=== PATIENT | male | born 1975 | race Caucasian/White ===

== ENCOUNTER → 2016-06-20 | Outpatient (CLI) | payer OTHER ==
--- NOTE | 2016-06-20 09:51 | KCIC ---
PROCEDURE Abdomen sonogram limited. HISTORY Palpable lump within the ventral abdominal wall during leg lifts. TECHNIQUE Sonographic imaging of the ventral abdominal wall at the site of reported palpable concern was performed. COMPARISON None. FINDINGS No ventral abdominal wall hernia is seen. No solid lesion or fluid collection is seen. IMPRESSION No sonographic abnormality at the site of palpable concern within the ventral abdominal wall. Electronically signed by: Amie Frias (Jun 20, 2016 09:49:40)
== END | disposition home or self-care (01) ==
LOC: KCIC US 08:51
PROVIDERS: ATTEND Physician Assistant Medical
DX: K43.9 Ventral hernia without obstruction or gangrene (principal)
CPT/HCPCS: 76705

== ENCOUNTER 2017-11-18 22:52 | Emergency (ER) | payer OTHER | END 2017-11-18 23:24 | disposition left against medical advice (07) | LOC: ER 22:52 | DX: R06.02 Shortness of breath (principal); R07.89 Other chest pain; Z53.21 Procedure and treatment not carried out due to patient leaving prior to being seen by health care provider ==

== ENCOUNTER → 2018-05-18 | Emergency (ER) | payer OTHER ==
[~2018-05-18] VITALS: Ht 182.9 cm; Wt 108.9 kg
[2018-05-18 21:45] VITALS: BP 174/80
--- NOTE | 2018-05-18 22:20 | PHYS DOC ---
Adult General Chief Complaint Chief Complaint: ANXIETY/PANIC ATTACK HPI HPI Patient is a 43 year old male who is presenting with anxiety. He has a history of anxiety in the past he says that he was lying in bed he felt like his heart was racing he just Lima Weak All over He Just Lima Shaky He Had Had a Xanax He Had Also Had a Leburn and Some Beer Earlier in the Day He Really Didn't Have Any Chest Pain Just Lima like His Heart Was "Fluttering". He Now Comes to the Emergency Room He Feels Much Better. 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 Allergies Allergies Allergies Coded Allergies Type Severity Reaction Last Updated Verified No Known Drug Allergies 05/18/18 No Physical Exam Physical Exam Constitutional: Well developed, well nourished, no acute distress, non-toxic appearance. [] HENT: Normocephalic, atraumatic, bilateral external ears normal, oropharynx moist, no oral exudates, nose normal. [] Eyes: PERRLA, EOMI, conjunctiva normal, no discharge. [] Neck: Normal range of motion, no tenderness, supple, no stridor. [] Cardiovascular:Heart rate regular rhythm, no murmur [] Lungs & Thorax: Bilateral breath sounds clear to auscultation [] Abdomen: Bowel sounds normal, soft, no tenderness, no masses, no pulsatile masses. [] Skin: Warm, dry, no erythema, no rash. [] Back: No tenderness, no CVA tenderness. [] Extremities: No tenderness, no cyanosis, no clubbing, ROM intact, no edema. [] Neurologic: Alert and oriented X 3, normal motor function, normal sensory function, no focal deficits noted. [] Psychologic: Affect normal, judgement normal, mood normal. CALM AND COOPERATIVE EKG EKG EKG shows normal sinus rhythm rate of 83 no acute ischemic changes noted no STEMI interpreted by me the time of encounter[] Radiology/Procedures Radiology/Procedures [] Course & Med Decision Making Course & Med Decision Making Pertinent Labs and Imaging studies reviewed. (See chart for details) Blood pressure was in the 170s heart rate normal respiratory rate 12 sat normal on room air see nurse's note for complete vitals 43-year-old male with anxiety most likely differential would include atypical coronary syndrome. 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 He knows that we'll do 2 troponins over at least a 2 hour period if not longer to rule this out entirely he knows there is a small risk of a missed [place]. He wants to sign out AGAINST MEDICAL ADVICE despite my above recommendations. He is of sound mind Dragon Disclaimer Dragon Disclaimer This electronic medical record was generated, in whole or in part, using a voice recognition dictation system. Departure Departure Impression: Primary Impression: Palpitations Disposition: 07 AGAINST MEDICAL ADVICE Condition: STABLE Patient Instructions: Palpitations, [id number]-[id number] CABRERA MARQUEZ MD May 18, 2018 22:20
--- NOTE | 2018-05-20 13:52 | EKG ---
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
== END ==
LOC: ER 21:35
DX: R00.2 Palpitations (principal); F41.9 Anxiety disorder, unspecified
CPT/HCPCS: 82962; 93005; 99284

== ENCOUNTER → 2019-10-07 | Outpatient (CLI) | payer OTHER ==
[2018-05-18 21:45] VITALS: BP 174/80
--- NOTE | 2019-10-07 13:39 | KCIC ---
Left TIBIA FIBULA AP LATERAL Clinical Indication: Reason: CHRONIC PAIN LEFT PROXIMAL FIBULA, NO TRUAMA, REPETITIVE MOTIONS/FIREFIGHTE / Spl. Instructions: / History: Comparison: None. Findings: The knee and ankle joints are intact. Os trigonum of the ankle is incidentally noted. There is no acute fracture. The mineralization is normal. No bone lesion is seen. There is no significant soft tissue swelling. No radiopaque foreign body is identified. IMPRESSION: No acute bone abnormality. Electronically signed by: Yung Moncada MD (10/07/2019 1:36 PM) [id number]
== END | disposition home or self-care (01) ==
LOC: KCIC 10:34
PROVIDERS: ATTEND Physician Assistant Medical
DX: M79.662 Pain in left lower leg (principal); G89.29 Other chronic pain
CPT/HCPCS: 73590

== ENCOUNTER → 2020-08-23 | Outpatient (CLI) | payer OTHER ==
[2018-05-18 21:45] VITALS: BP 174/80
--- NOTE | 2020-08-23 12:49 | KCIC ---
EXAM: Chest, 2 views. HISTORY: Preoperative evaluation. Smoking. COMPARISON: None. FINDINGS: 2 views of the chest are obtained. There is no infiltrate, pleural effusion or pneumothorax . The heart is normal in size. IMPRESSION: No acute pulmonary finding. Electronically signed by: Amie Frias MD (08/23/2020 12:46 PM) [id number]
== END ==
LOC: KCIC 12:27
PROVIDERS: ATTEND Physician Assistant Medical
DX: Z01.818 Encounter for other preprocedural examination (principal); F17.210 Nicotine dependence, cigarettes, uncomplicated
CPT/HCPCS: 71046

== ENCOUNTER 2021-05-03 18:31 | Emergency (ER) | payer OTHER ==
[~2021-05-03] VITALS: Ht 182.9 cm; Wt 124.6 kg
[2021-05-03] MEDS ORDERED: IV NORMAL SALINE 1000ML BAG 1,000 ML IV ONE ×2 (19:15→21:00)
[2021-05-03 19:23] LABS: BASO # 0.1 x10^3/uL (0.0-0.2); BASO % 1 % (0-3); EOS % 1 % (0-3); HEMATOCRIT 52.4 % (39.0-53.0); HEMOGLOBIN 17.4 g/dL (13.0-17.5); LYMPH # 1.7 x10^3/uL (1.0-4.8); LYMPH % 19 % (24-48); MEAN CORPUSCULAR HEMOGLOBIN 31 pg (25-35); MEAN CORPUSCULAR HGB CONC 33 g/dL (31-37); MEAN CORPUSCULAR VOLUME 94 fL (79-100); MONO # 0.8 x10^3/uL (0.0-1.1); MONO % 9 % (0-9); NEUT # 6.3 x10^3/uL (1.8-7.7); NEUT % 71 % (31-73); PLATELET COUNT 205 x10^3/uL (140-400); RED BLOOD COUNT 5.56 x10^6/uL (4.30-5.70); RED CELL DISTRIBUTION WIDTH 14.9 % (11.5-14.5); WHITE BLOOD COUNT 8.9 x10^3/uL (4.0-11.0)
[2021-05-03 19:35] LABS: CALCIUM 9.6 mg/dL (8.5-10.1); GFR 80.8; POTASSIUM 4.2 mmol/L (3.5-5.1)
[2021-05-03 19:41] LABS: ALBUMIN 3.8 g/dL (3.4-5.0); ALBUMIN/GLOBULIN RATIO 1.1 (1.0-1.7); MAGNESIUM 2.1 mg/dL (1.8-2.4); PHOSPHORUS 3.9 mg/dL (2.6-4.7); TOTAL BILIRUBIN 0.3 mg/dL (0.2-1.0); TOTAL PROTEIN 7.3 g/dL (6.4-8.2)
--- NOTE | 2021-05-03 20:56 | RAD ---
EXAM: AP View of the chest DATE: 05/03/2021 7:43 PM INDICATION: Reason: Chest palpitations COMPARISON: 08/23/2020 FINDINGS: The heart is not enlarged. Mediastinal and hilar contours are normal. Patchy opacities left midlung and left infrahilar region likely atelectasis or developing consolidati on. No pleural effusion or pneumothorax. IMPRESSION: Patchy opacities left midlung and left infrahilar region likely atelectasis or developing consolidati on. Electronically signed by: Jose Jacome MD (05/03/2021 8:54 PM) REGIS
[2021-05-03 21:00] VITALS: BP 165/90
[2021-05-03] MEDS ORDERED: diphenhydrAMINE 50 MG/ML VIAL IVP ONE (21:00)
--- NOTE | 2021-05-03 21:19 | PHYS DOC ---
Past Medical History Past Medical History: No Pertinent History (GAYATRI RECINOS APRN) Past Surgical History: Other Additional Past Surgical Histo: right knee,ANKLE (GAYATRI RECINOS APRN) Smoking Status: Never Smoker Alcohol Use: Occasionally Drug Use: None (GAYATRI RECINOS APRN) General Adult EDM: Chief Complaint: CHEST PAIN HPI: HPI: Patient is a 46-year-old male who presents to the emergency department chief complaint of heart palpitations all day today. Patient reports he started itching all over 4 days ago, seen his primary care physician who started him on a Medrol dose pack, patient reports his itching is still on and off, noticed chest palpitations and chest tightness while getting ready for work today. Denies shortness of breath, diaphoretic episodes, syncopal or near syncopal episodes, denies dizziness. Denies nausea, vomiting, diarrhea or abdominal discomfort. 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 Patient denies history of cigarette smoking, alcohol consumption, or illicit drug use. Patient denies other physical complaints or physical concerns. (GAYATRI RECINOS APRN) Review of Systems: Review of Systems: 14 body systems of review of systems have been reviewed. See HPI for pertinent positives and negative responses, otherwise all other systems are negative, nonpertinent or noncontributory. Constitutional: Negative except as outlined in HPI above. Skin: Negative except as outlined in HPI above. Eyes: Negative except as outlined in HPI above. HENT: Negative except as outlined in HPI above. Respiratory: Negative except as outlined in HPI above. Cardiovascular: Negative except as outlined in HPI above. GI: Negative except as outlined in HPI above. : Negative except as outlined in HPI above. Musculoskeletal: Negative except as outlined in HPI above. Integument: Negative except as outlined in HPI above. Neurologic: Negative except as outlined in HPI above. Endocrine: Negative except as outlined in HPI above. Lymphatic: Negative except as outlined in HPI above. Psychiatric: Negative except as outlined in HPI above. (GAYATRI RECINOS APRN) Heart Score: C/O Chest Pain: Yes HEART Score for Chest Pain: HEART Score for Chest Pain Response (Comments) Value History Slighlty/Non-Suspicious 0 ECG Normal 0 Age >45 - < 65 1 Risk Factors No Risk Factors 0 Troponin < Normal Limit 0 Total 1 Risk Factors: Risk Factors: DM, Current or recent (<one month) smoker, HTN, HLP, family history of CAD, obesity. Risk Scores: Score 0 - 3: 2.5% MACE over next 6 weeks - Discharge Home Score 4 - 6: 20.3% MACE over next 6 weeks - Admit for Clinical Observation Score 7 - 10: 72.7% MACE over next 6 weeks - Early Invasive Strategies (GAYATRI RECINOS APRN) Current Medications: Current Medications Medications (Trade) Dose Ordered Sig/Karlos Start Time Stop Time Status Last Admin Dose Admin Diphenhydramine HCl (Benadryl) 50 mg 1X ONCE 05/03/21 21:00 05/03/21 21:01 DC Sodium Chloride 1,000 ml @ 1,000 mls/hr 1X ONCE 05/03/21 21:00 05/03/21 21:59 (GAYATRI RECINOS APRN) Allergies: Allergies: Allergies Coded Allergies Type Severity Reaction Last Updated Verified No Known Drug Allergies 05/18/18 No (GAYATRI RECINOS APRN) Physical Exam: PE: Constitutional: Well developed, well nourished, no acute distress, non-toxic appearance. 46-year-old male in no apparent distress. HENT: Normocephalic, atraumatic. Eyes: Conjunctiva normal, no discharge. Neck: Normal range of motion, no stridor. Cardiovascular: No cyanosis appreciated, distal cap refill less than 2 seconds. Regular rate and rhythm, heart sounds S1-S2 to auscultation. Lungs & Thorax: Patient is in no respiratory distress, no audible adventitious lung sounds appreciated. Lung sounds clear to auscultation all lung cruz, normal work of breathing. Abdomen: Nontender, no abnormalities noted. Skin: Warm, dry, no erythema, no rash. Back: No tenderness, no deformities. Extremities: No tenderness, no cyanosis, no clubbing, ROM intact, no edema. Neurologic: Alert and oriented X 3, normal motor function, normal sensory function, no focal deficits noted. Psychologic: Affect normal, judgement normal, mood normal. (GAYATRI RECINOS APRN) Current Patient Data: Labs: Laboratory Tests Test 05/03/21 19:16 White Blood Count 8.9 x10^3/uL (4.0-11.0) Red Blood Count 5.56 x10^6/uL (4.30-5.70) Hemoglobin 17.4 g/dL (13.0-17.5) Hematocrit 52.4 % (39.0-53.0) Mean Corpuscular Volume 94 fL (79-100) Mean Corpuscular Hemoglobin 31 pg (25-35) Mean Corpuscular Hemoglobin Concent 33 g/dL (31-37) Red Cell Distribution Width 14.9 % (11.5-14.5) H Platelet Count 205 x10^3/uL (140-400) Neutrophils (%) (Auto) 71 % (31-73) Lymphocytes (%) (Auto) 19 % (24-48) L Monocytes (%) (Auto) 9 % (0-9) Eosinophils (%) (Auto) 1 % (0-3) Basophils (%) (Auto) 1 % (0-3) Neutrophils # (Auto) 6.3 x10^3/uL (1.8-7.7) Lymphocytes # (Auto) 1.7 x10^3/uL (1.0-4.8) Monocytes # (Auto) 0.8 x10^3/uL (0.0-1.1) Eosinophils # (Auto) 0.0 x10^3/uL (0.0-0.7) Basophils # (Auto) 0.1 x10^3/uL (0.0-0.2) D-Dimer (Paola) < 0.27 ug/mlFEU Sodium Level 140 mmol/L (136-145) Potassium Level 4.2 mmol/L (3.5-5.1) Chloride Level 102 mmol/L (98-107) Carbon Dioxide Level 28 mmol/L (21-32) Anion Gap 10 (6-14) Blood Urea Nitrogen 18 mg/dL (8-26) Creatinine 1.0 mg/dL (0.7-1.3) Estimated GFR (Cockcroft-Gault) 80.8 BUN/Creatinine Ratio 18 (6-20) Glucose Level 102 mg/dL (70-99) H Calcium Level 9.6 mg/dL (8.5-10.1) Phosphorus Level 3.9 mg/dL (2.6-4.7) Magnesium Level 2.1 mg/dL (1.8-2.4) Total Bilirubin 0.3 mg/dL (0.2-1.0) Aspartate Amino Transferase (AST) 18 U/L (15-37) Alanine Aminotransferase (ALT) 41 U/L (16-63) Alkaline Phosphatase 59 U/L (46-116) Troponin I High Sensitivity 24 ng/L (4-75) VO-Phl-X-Type Natriuretic Peptide 61 pg/mL (0-124) Total Protein 7.3 g/dL (6.4-8.2) Albumin 3.8 g/dL (3.4-5.0) Albumin/Globulin Ratio 1.1 (1.0-1.7) Lipase 166 U/L (73-393) Laboratory Tests 05/03/21 19:16 Laboratory Tests 05/03/21 19:16 Vital Signs: Vital Signs Date Time Temp Pulse Resp B/P (MAP) Pulse Ox O2 Delivery O2 Flow Rate FiO2 05/03/21 18:33 98.1 107 20 153/87 (109) 99 Room Air 98.1 (GAYATRI RECINOS APRN) EKG: EKG: EKG performed at 1840 shows a sinus tachycardia with occasional PVCs, heart rate is 108 bpm, TN interval is 0.122, QTc interval 0.514, no acute STEMI, no ACS, no acute ischemia appreciated, EKG interpreted by ED attending physician Dr. Pennington. (GAYATRI RECINOS APRN) Radiology/Procedures: Radiology/Procedures: REASON: Chest palpitations PROCEDURE: CHEST AP ONLY EXAM: AP View of the chest DATE: 05/03/2021 7:43 PM INDICATION: Reason: Chest palpitations COMPARISON: 08/23/2020 FINDINGS: The heart is not enlarged. Mediastinal and hilar contours are normal. Patchy opacities left midlung and left infrahilar region likely atelectasis or developing consolidation. No pleural effusion or pneumothorax. IMPRESSION: Patchy opacities left midlung and left infrahilar region likely atelectasis or developing consolidation. Electronically signed by: Jose Jacome MD (05/03/2021 8:54 PM) [facility] (GAYATRI RECINOS APRN) Course & Med Decision Making: Course & Med Decision Making Pertinent Labs and Imaging studies reviewed. (See chart for details) 46 yo male vital signs reviewd, presents to the emergency department concerning chest palpitations and chest tightness today. Physical examination is unremarkable. Patient is currently on a Medrol Dosepak regimen for itching, has not taken any Benadryl today. There is no definitive reaction source will order EKG, CBC, CMP, high-sensitivity troponin I, chest x-ray, D-dimer. Patient's chest x-ray is unremarkable, labs are unremarkable, D-dimer is negative and nonconcerning, will order repeat serial troponin I high-sensitivity 2-hour interval. At 915, patient states he needs to leave the emergency department. Discussed with patient he would be leaving AGAINST MEDICAL ADVICE. Patient is adamant he needs to leave, discussed with patient if repeat troponin is elevated will call to discuss results and have him return immediately, patient is amendable to this planning, discussed with patient strict return to the closest emergency de partment for returning chest pain or discomfort. Patient is currently pain-free and symptom-free. Patient is hemodynamically stable. The patient has decided to leave our facility against medical advice. I have assessed patient's ability to make informed decision and feel the patient has the capacity to comprehend information regarding the current medical condition and appreciates the impact of the disease or condition and the consequences of various options for treatment, including foregoing treatment. The patient possesses the ability to evaluate all treatment options, comparing the risks and benefits of each option, communicate his or her choice in a consistent manner over time, and is able to make rational choices. I explained to the patient further testing, treatment, and evaluation I would like to perform in the emergency department visit as well as any possible alternatives that can be accomplished in a timely manner. I have outlined the possible risks of foregoing any or all of these interventions and the patient understands and acknowledges that the decision to leave may result in undesirable consequences such as , permanent disability, and/or loss of current lifestyle. Even though leaving AMA is not ideal, I have instructed the patient to follow any discharge instructions given, take any medications prescribed, and resume care as soon as possible with another provider. This conversation was witnessed by another member of the emergency department staff and we clearly communicated the patient is welcome to return anytime to continue care at our facility. (GAYATRI RECINOS APRN) Course & Med Decision Making Reviewed Repeat troponin-- no acute change from initial. (ROSI PENNINGTON I DO) Dragon Disclaimer: Brii Disclaimer: This electronic medical record was generated, in whole or in part, using a voice recognition dictation system. (GAYATRI RECINOS APRN) Departure Departure Impression: Primary Impression: Palpitations Additional Impression: Left against medical advice Disposition: HOME / SELF CARE / HOMELESS Condition: GOOD Referrals: SILVESTRE SANTIAGO MD (PCP) Patient Instructions: Chest Pain (Nonspecific) Additional Instructions: You were seen today in the emergency department for chest tightness and chest palpitations. You had elected to leave before the completion of the emergency department work-up. As we discussed a second serial troponin I high-sensitivity was drawn, if this is elevated or concerning you will be called at the number you left with the admitting clerks. Please return to the nearest emergency department for any returning chest pain chest palpitations shortness of breath or other concerns. Patient does not wish to proceed with medical care recommended by HUMERA Barger. Patient given information related to possible complications, up to and including , which could occur as a result of leaving the hospital at this time. Patient verbalizes understanding of risks involved due to leaving against medical advice. Patient has signed AMA form. GAYATRI RECINOS APRN May 03, 2021 21:19 ROSI PENNINGTON DO May 03, 2021 21:59
--- NOTE | 2021-05-04 05:27 | EKG ---
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
== END 2021-05-03 21:18 | disposition home or self-care (01) ==
LOC: ER 18:31
DX: R00.2 Palpitations (principal); R07.89 Other chest pain; L29.8 Other pruritus
CPT/HCPCS: 36415; 71045; 80053; 83690; 83735; 83880; 84100; 84484; 85025; 85379; 93005; 96361; 96374; 99285; J1200; J7030

== ENCOUNTER → 2021-07-07 | Outpatient (CLI) | payer OTHER ==
--- NOTE | 2021-07-07 14:12 | CARD ---
MR#: [id number] Date of Study: 07/07/2021 Ordering Physician: TRISHA EARL, Referring Physician: TRISHA EARL, Tech: Rosemary Arnold [facility] APPROVED REPORT EXAM: Two-dimensional and M-mode echocardiogram with Doppler and color Doppler. INDICATION Arrhythmia Hypertension/HCVD PVC's 2D DIMENSIONS Left Atrium(2D)4.5 (1.6-4.0cm)IVSd1.1 (0.7-1.1cm) LVDd6.2 (3.9-5.9cm)LVOT Diameter2.6 (1.8-2.4cm) PWd1.3 (0.7-1.1cm)LVDs4.5 (2.5-4.0cm) FS (%) 27.1 %SV100.7 ml LVEF(%)51.8 (>50%) Aortic Valve AoV Peak Abdoulaye.160.3cm/Tasha Peak GR.10.4mmHg LVOT Peak Abdoulaye.103.3cm/sAVA (VMAX)3.31cm2 Mitral Valve MV E Bfpxjpff04.3cm/sMV DECEL RKIW503qm MV A Hvllkcnv73.0cm/sE/A Ratio0.8 Pulmonary Valve PV Peak Apvmnltp763.2cm/s Tricuspid Valve TR P. Vxkzxhnx912zf/sRAP AJSATIDB6haSz TR Peak Gr.42eaBiFFVJ74fcTn Pulmonary Vein S1 Bytnbjhg01.6cm/sD2 Nqequjef51.2cm/s PVa vzbsgcvh06szpf LEFT VENTRICLE The Left Ventricle is mildly dilated. There is mild concentric left ventricular hypertrophy. The left ventricular systolic function is normal and the ejection fraction is within normal range. EF 55% The re is normal LV segmental wall motion. The left ventricular diastolic function is normal. No left lisy tricle thrombus noted on this study. There is no ventricular septal defect visualized. There is no le ft ventricular aneurysm. There is no mass noted in the left ventricle. RIGHT VENTRICLE The right ventricle is normal size. There is normal right ventricular wall thickness. The right ventr icular systolic function is normal. ATRIA The left atrium size is normal. The right atrium size is normal. The interatrial septum is intact wit h no evidence for an atrial septal defect or patent foramen ovale as noted on 2-D or Doppler imaging. AORTIC VALVE The aortic valve is normal in structure and function. No aortic regurgitation is present. There is no aortic valvular stenosis. There is no aortic valvular vegetation. MITRAL VALVE The mitral valve is normal in structure and function. There is no evidence of mitral valve prolapse. There is no mitral valve stenosis. There is no mitral valve regurgitation noted. TRICUSPID VALVE The tricuspid valve is normal in structure and function. Doppler and Color Flow revealed trace to mil d tricuspid regurgitation. The pulmonary artery systolic pressure is estimated at less than 30 mmHg. There is no tricuspid valve prolapse or vegetation. There is no tricuspid valve stenosis. PULMONIC VALVE There is no pulmonic valvular regurgitation. There is no pulmonic valvular stenosis. GREAT VESSELS The aortic root is normal in size. The ascending aorta is normal in size. The IVC is normal in size a nd collapses >50% with inspiration. PERICARDIAL EFFUSION There is no pleural effusion. There is no evidence of significant pericardial effusion. Critical Notification Critical Value: No <Conclusion> The left ventricular systolic function is normal and the ejection fraction is within normal range. EF 55% There is normal LV segmental wall motion. Doppler and Color Flow revealed trace to mild tricuspid regurgitation. The pulmonary artery systolic pressure is estimated at less than 30 mmHg. Signed by : Trisha Earl, Electronically Approved : 07/07/2021 14:12:30
== END ==
LOC: ECHO 09:50
PROVIDERS: ATTEND Internal Medicine Cardiovascular Disease
DX: I07.1 Rheumatic tricuspid insufficiency (principal); I49.3 Ventricular premature depolarization; I49.9 Cardiac arrhythmia, unspecified
CPT/HCPCS: 93306; C8929